=== PATIENT | female | born 1990 | race Caucasian/White ===

== ENCOUNTER → 2019-01-11 | Outpatient (REF) | payer OTHER | LOC: M LAB LCGH 14:10 | PROVIDERS: ATTEND Obstetrics & Gynecology | DX: Z12.4 Encounter for screening for malignant neoplasm of cervix (principal) ==

== ENCOUNTER → 2019-05-19 | Outpatient (REF) | LOC: M LAB LCGH 14:40 | PROVIDERS: ATTEND Obstetrics & Gynecology Obstetrics | DX: Z36.89 Encounter for other specified antenatal screening (principal) ==

== ENCOUNTER → 2019-06-03 | Outpatient (REF) | LOC: M LAB LCGH 09:11 | PROVIDERS: ATTEND Obstetrics & Gynecology | DX: Z36.89 Encounter for other specified antenatal screening (principal) ==

== ENCOUNTER 2022-01-06 21:28 | Outpatient (CLI) | payer OTHER ==
[~2022-01-06] VITALS: Ht 175.3 cm; Wt 83.1 kg
[2022-01-06 21:48] VITALS: BP 139/79
[2022-01-06] MEDS ORDERED: PRENTAB9 PO (21:57)
[2022-01-06 23:05] VITALS: BP 132/62
== END 2022-01-06 23:15 | disposition home or self-care (01) ==
LOC: M LDO 21:28
PROVIDERS: ATTEND Obstetrics & Gynecology
DX: O60.03 Preterm labor without delivery, third trimester (principal); Z3A.34 34 weeks gestation of pregnancy
CPT/HCPCS: 59025; G0378; G0463

== ENCOUNTER 2022-01-13 11:57 | Outpatient (CLI) | payer OTHER ==
[~2022-01-13] VITALS: Ht 175.3 cm; Wt 83.5 kg
[2022-01-13 12:21] VITALS: BP 120/77
[2022-01-13] MEDS ORDERED: BETAMETHASONE SOLUSPAN 6MG/ML 5ML VIAL (J0702 PER 3MG) IM SCH (13:00)
== END 2022-01-13 13:40 | disposition home or self-care (01) ==
LOC: M LDO 11:57
PROVIDERS: ATTEND Obstetrics & Gynecology
DX: O41.03X9 Oligohydramnios, third trimester, other fetus (principal); O36.5930 Maternal care for other known or suspected poor fetal growth, third trimester, not applicable or unspecified; Z3A.35 35 weeks gestation of pregnancy
CPT/HCPCS: 59025; 76811; 76819; 76820; 96372; G0378; G0463; J0702

== ENCOUNTER → 2022-01-13 | Outpatient (REF) | payer OTHER ==
[~2022-01-13] MED LIST: PRENTAB9 PO
== END ==
LOC: M SFHCWAGY 13:04
PROVIDERS: ATTEND Advanced Practice Midwife
DX: Z36.85 Encounter for antenatal screening for Streptococcus B (principal)

== ENCOUNTER 2022-01-14 13:43 | Outpatient (CLI) | payer OTHER ==
[~2022-01-14] VITALS: Ht 175.3 cm; Wt 84.4 kg
[2022-01-14 14:07] VITALS: BP 132/75
[2022-01-14] MEDS ORDERED: HOME MED LIST COMPLETE! XX SCH (14:15)
[2022-01-14] MEDS ORDERED: BETAMETHASONE SOLUSPAN 6MG/ML 5ML VIAL (J0702 PER 3MG) IM ONE (14:45)
== END 2022-01-14 14:35 | disposition home or self-care (01) ==
LOC: M LDO 13:43
PROVIDERS: ATTEND Specialist
DX: O36.5930 Maternal care for other known or suspected poor fetal growth, third trimester, not applicable or unspecified (principal); O41.03X9 Oligohydramnios, third trimester, other fetus; Z3A.35 35 weeks gestation of pregnancy
CPT/HCPCS: 59025; 96372; G0378; G0463; J0702

== ENCOUNTER 2022-01-17 07:50 | Inpatient (IN) | payer OTHER ==
[2022-01-17] VITALS (24 sets, daily range): BP systolic 120–143; BP diastolic 66–96
[~2022-01-17] VITALS: Ht 175.3 cm; Wt 84.6 kg
[2022-01-17] MEDS ORDERED: HOME MED LIST COMPLETE! XX SCH (08:20)
[2022-01-17] MEDS ORDERED: LACTATED RINGER'S 1000 ML IV STA (08:38)
[2022-01-17] MEDS ORDERED: CARBOPROST TROMETHAMINE 250 MCG/ML AMP IM PRN (08:40)
[2022-01-17] MEDS ORDERED: TRANEXAMIC ACID INJection 1,000 MG in NS 100 ML IV PRN (08:40)
[2022-01-17] MEDS ORDERED: OXYTOCIN DRIP 30 UNITS in IV 1 EA IV PRN (08:40)
[2022-01-17] MEDS ORDERED: LIDOCAINE 1% MDV 20ML VIAL INFIL PRN (08:40)
[2022-01-17] MEDS ORDERED: METHYLERGONOVINE MALEATE 0.2 MG/ML VIAL (J2210) IM PRN (08:40)
[2022-01-17] MEDS: miSOPROStol 50MCG 1/2 TABLET PO SCH ×2 (09:02→13:29)
[2022-01-17 09:09] LABS: HEMATOCRIT 34.6 % (36.0-47.0); HEMOGLOBIN 11.5 g/dl (12.0-15.5); MEAN CORPUSCULAR HEMOGLOBIN 29.2 pg (27.0-33.0); MEAN CORPUSCULAR HGB CONC 33.2 g/dl (32.0-36.5); MEAN CORPUSCULAR VOLUME 87.8 fl (80.0-96.0); PLATELET COUNT, AUTOMATED 215 10^3/uL (150-450); RED BLOOD COUNT 3.94 10^6/uL (4.00-5.40); WHITE BLOOD COUNT 10.9 10^3/uL (4.0-10.0)
[2022-01-17] MEDS ORDERED: OXYTOCIN DRIP 30 UNITS in IV 1 EA IV SCH (18:05)
[2022-01-17] MEDS: LR 1,000 ML IV SCH (19:20)
[2022-01-18] VITALS (18 sets, daily range): BP systolic 119–187; BP diastolic 66–111
[2022-01-18] MEDS: LR 1,000 ML IV SCH ×2 (00:15→02:27)
[2022-01-18] MEDS ORDERED: FENTANYL 2MCG/ML ROPIVACAINE 0.2% IN 0.9% NACL 100ML IVBAG As Ordered ONE (01:44)
[2022-01-18] MEDS ORDERED: ONDANSETRON 4MG/2ML VIAL IV PRN (02:22)
[2022-01-18] MEDS ORDERED: FENTANYL/ROPIVACAINE/NACL BAG 100 ML EPIDURAL SCH (02:22)
[2022-01-18] MEDS ORDERED: NALOXONE INJ 0.4MG/1ML VIAL (J2310 PER 1MG) IV PRN (02:22)
[2022-01-18] MEDS ORDERED: EPIDURAL/PCA KEYS XX PRN (02:22)
[2022-01-18] MEDS ORDERED: diphenhydrAMINE 50MG/ML VIAL (J1200) IV PRN (02:22)
[2022-01-18] MEDS ORDERED: EPIDURAL COMMENT XX SCH (02:22)
[2022-01-18] MEDS ORDERED: REFRIGERATOR IV KEYS XX PRN (02:22)
[2022-01-18] MEDS ORDERED: LACTATED RINGER'S 1000 ML IV PRN (02:22)
[2022-01-18] MEDS ORDERED: ePHEDrine SULFATE 25 MG/5 ML(5MG/ML) SYRINGE IV PRN (02:22)
[2022-01-18] MEDS ORDERED: METHYLERGONOVINE MALEATE 0.2 MG TAB PO PRN (04:15)
[2022-01-18] MEDS ORDERED: MOM 30ML SUSPENSION UDC PO PRN (04:15)
[2022-01-18] MEDS ORDERED: DOCUSATE SODIUM 100MG CAPSULE PO PRN (04:15)
[2022-01-18] MEDS ORDERED: ANUSOL HC CREAM 30GM TOP PRN (04:15)
[2022-01-18] MEDS ORDERED: MEASLES,MUMPS,RUBELLA VACCINE INJ (MMR-II) (90707) SC SCH (04:15)
[2022-01-18] MEDS ORDERED: DIBUCAINE 1% OINTMENT 30GM TOP PRN (04:15)
[2022-01-18] MEDS ORDERED: ACETAMINOPHEN TAB 650MG DOSE (2X325MG) PO PRN (04:15)
[2022-01-18] MEDS ORDERED: IBUPROFEN 600MG TAB PO PRN (04:15)
[2022-01-18] MEDS ORDERED: RHOGAM 300 MCG (1500 IU) INJ (J2790) IM SCH (04:15)
[2022-01-18] MEDS ORDERED: IBUPROFEN 800 MG TAB PO PRN (04:15)
[2022-01-18] MEDS: PRENATAL VITAMINS CHEWABLE TABLET PO SCH (08:52)
[2022-01-18] MEDS: ACETAMINOPHEN 500 MG TAB PO PRN (08:53)
[2022-01-19 06:00] VITALS: BP 138/83
[2022-01-19] MEDS: PRENATAL VITAMINS CHEWABLE TABLET PO SCH (10:10)
[2022-01-19] MEDS: ACETAMINOPHEN 500 MG TAB PO PRN (17:01)
== END 2022-01-19 18:00 | disposition home or self-care (01) | DRG 805 ==
LOC: M LDI 07:50 → M OBS 01-18 05:15
PROVIDERS: ADMIT Advanced Practice Midwife; ATTEND Advanced Practice Midwife
PROC: 3E033VJ Introduction of Other Hormone into Peripheral Vein, Percutaneous Approach (ICD-10-PCS; 2022-01-17)
PROC: 3E0DXGC Introduction of Other Therapeutic Substance into Mouth and Pharynx, External Approach (ICD-10-PCS; 2022-01-17)
PROC: 10E0XZZ Delivery of Products of Conception, External Approach (ICD-10-PCS; principal; 2022-01-18)
PROC: 0HQ9XZZ Repair Perineum Skin, External Approach (ICD-10-PCS; 2022-01-18)
DX: O32.6XX0 Maternal care for compound presentation, not applicable or unspecified (principal); Z37.0 Single live birth; O60.14X0 Preterm labor third trimester with preterm delivery third trimester, not applicable or unspecified; O41.03X0 Oligohydramnios, third trimester, not applicable or unspecified; Z3A.36 36 weeks gestation of pregnancy; O70.0 First degree perineal laceration during delivery; O36.5990 Maternal care for other known or suspected poor fetal growth, unspecified trimester, not applicable or unspecified